=== PATIENT | male | born 1985 | race Caucasian/White ===

== ENCOUNTER 2017-12-14 09:20 | Observation (INO) ==
[2017-12-14 09:29] VITALS: BMI 33.6
--- NOTE | 2017-12-14 10:14 | DR.DIARMA ---
HPI Time seen Time Seen by Provider: 12/14/17 10:06 PCP Primary Care Physician: CHRISTOFER LAUREANO Complaint Chief Complaint Doctor Comments: I agree with statement as written Chief Complaint:: PT. STATES HE HAS IBS AND HAS DIARRHEA SINCE LAST WEEK. PT. SAW PCP LAST WEEK. DIARRHEA WORSENED ON THURSDAY. PT. ALSO C/O ABDOMINAL PAIN. PT. STATES HE LOST 6 LBS YESTERDAY AND WORRIES HE IS BECOMING DEHYDRATED. Source History Provided: Patient Mode of Arrival Mode of Arrival: Ambulatory Timing Onset of Chief Complaint: 12/11/17 PMH PMH Past Medical History: Yes Past Medical History Comment: IBS Past Surgical History: No Surgical History: No History Family History History of Family Medical Conditions: Yes Family Medical History: Diabetes Mellitus, Cancer, Coronary Artery Disease and Hypertension Social History Does patient currently use any type of tobacco product: Yes Have you used tobacco products in the last 12 months: Yes Type of Tobacco Use: DIPS Does any household member use tobacco: No Alcohol Use: None Do you use any recreational Drugs:: No Lives With: Spouse Lives Where: Home infectious screening In the last 2 months have you had wt loss of >10#?: NO Have you had fever, night sweats or hemotysis?: No Have you traveled outside the country in the last 6 months?: No Isolation: Standard PE Vital Signs Vitals: Temperature 98.6 F Pulse Rate [Right Brachial] 76 Pulse Rate 90 Respiratory Rate 20 Blood Pressure [Right Arm] 130/60 Blood Pressure 133/82 O2 Sat by Pulse Oximetry 94 General Limitations: No Limitations; negative Language Barrier and Altered Mental Status General Appearance: Alert and In No Apparent Distress Head Head Exam: Normal Inspection, Atraumatic and Normocephalic Eyes Eye exam: PERRL and EOMI; negative Scleral Icterus ENT ENT Exam: Normal Exam, Normal Oropharynx, Normal External Ear Exam, Mucous Membranes Moist and TM's Normal Bilaterally; negative Mucous Membranes Dry Neck Neck Exam: Normal Inspection and Full ROM Chest Chest Inspection: Normal Inspection and Symmetric Chest Wall Rise; negative Tenderness Respiratory Respiratory Exam: Normal Lung Sounds Bilat; negative Accessory Muscle Use, Chest Wall Tenderness, Prolonged Expiratory Phase, Respiratory Distress and Stridor Respiratory Exam: Bilateral: Clear to Auscultation Cardiovascular Cardiovascular Exam: Normal Rhythm; negative Systolic Murmur Abdominal Exam Abdominal Exam: Normal Inspection, Normal Bowel Sounds, Soft and Hyperactive Bowel Sounds; negative Tenderness, Rebound, Rigidity, Hypoactive Bowel Sounds, Organomegaly, Trauma, Incision and Ascites Abdominal Tenderness: negative RUQ, RLQ, LUQ, LLQ, Epigastrium and Suprapubic Rectal Rectal: negative Normal and Deferred Genitourinary Scrotum: Deferred Prostate: Deferred Extremeties Extremities Exam: Normal Inspection Back Back Exam: Normal Inspection and Full ROM Neurologic Neurological Exam: Alert, Oriented X3 and CN II-XII Intact Psychiatric Psychiatric Exam: Normal Affect and Normal Mood; negative Agitated Skin Skin Exam: Warm, Dry, Intact and Normal Color COURSE Consultation Called: 12:30 Consultation Comments: Patient discussed with Dr. Gilliam who agreed to admit for further evaluation and treatment. [facility] Labs Reviewed Laboratory Results Reviewed?: Yes Result Diagrams: 12/14/17 10:19 12/14/17 10: Laboratory: WBC 14.6 X10^3/uL (3.6-10.0) H 12/14/17 10:19 RBC 5.58 X10^6/uL (4.7-6.0) 12/14/17 10:19 Hgb 17.2 g/dL (13.5-18.0) 12/14/17 10:19 Hct 49.8 % (42.0-54.0) 12/14/17 10:19 MCV 89.3 fL (80.0-100.0) 12/14/17 10:19 MCH 30.9 pg (27.0-34.0) 12/14/17 10:19 MCHC 34.6 g/dL (33.0-35.0) 12/14/17 10:19 RDW 13.3 % (11.6-16.5) 12/14/17 10:19 Plt Count 352 X10^3/uL (150.0-450.0) 12/14/17 10:19 MPV 8.1 fL (7.4-11.0) 12/14/17 10:19 Neut % (Auto) 78.8 % (42.0-75.0) H 12/14/17 10:19 Lymph % (Auto) 11.5 % (21.0-51.0) L 12/14/17 10:19 Irion % (Auto) 7.2 % (0.0-13.0) 12/14/17 10:19 Eos % (Auto) 2.3 % (0.9-2.9) 12/14/17 10:19 Baso % (Auto) 0.2 % (0.2-1.0) 12/14/17 10:19 Neut # (Auto) 11.5 x10^3/uL (2.2-4.8) H 12/14/17 10:19 Lymph # (Auto) 1.7 X10^3/uL (1.3-2.9) 12/14/17 10:19 Irion # (Auto) 1.1 x10^3/uL (0.3-0.8) H 12/14/17 10:19 Eos # (Auto) 0.3 x10^3/uL (0.0-0.2) H 12/14/17 10:19 Baso # (Auto) 0.0 X10^3/uL (0.0-0.1) 12/14/17 10:19 Absolute Nucleated RBC 0.0 /100WBC 12/14/17 10:19 Sodium 137 mmol/L (136-145) 12/14/17 10:19 Corrected Sodium TNP 12/14/17 10:19 Potassium 4.0 mmol/L (3.5-5.1) 12/14/17 10:19 Chloride 103 mmol/L (98-107) 12/14/17 10:19 Carbon Dioxide 25.7 mmol/L (21-32) 12/14/17 10:19 BUN 11 mg/dL (7-18) 12/14/17 10:19 Creatinine 1.16 mg/dL (0.70-1.30) 12/14/17 10:19 Est GFR (MDRD) Af Amer > 60 (>60) 12/14/17 10:19 Est GFR (MDRD) Non-Af > 60 (>60) 12/14/17 10:19 Glucose 102 mg/dL (65-99) H 12/14/17 10:19 Calcium 8.9 mg/dL (8.5-10.1) 12/14/17 10:19 Corrected Calcium TNP 12/14/17 10:19 Total Bilirubin 0.40 mg/dL (0.2-1.0) 12/14/17 10:19 AST 19 Units/L (15-37) 12/14/17 10:19 ALT 53 Units/L (12-78) 12/14/17 10:19 Alkaline Phosphatase 103 Units/L (46-116) 12/14/17 10:19 C-Reactive Protein 11.70 mg/L (0-3.0) H 12/14/17 10:19 Total Protein 8.4 g/dL (6.4-8.2) H 12/14/17 10:19 Albumin 4.3 g/dL (3.4-5.0) 12/14/17 10:19 Globulin 4.1 g/dL (2.5-4.5) 12/14/17 10:19 Albumin/Globulin Ratio 1.0 Ratio (1.1-2.1) L 12/14/17 10:19 Stool Description 30g yellow liquid 12/14/17 10:22 Stl Occult Blood (IFOB) Positive (NEGATIVE) A 12/14/17 10:22 Stool for White Cells Positive (NEGATIVE) A 12/14/17 10:22 H. pylori IgG Antibody Negative (NEGATIVE) 12/14/17 10:19 Diagnosis Discharge Problem: Ulcerative colitis ADDITIONAL NOTES Additional Notes Additional Notes: Stool is positive for blood and wbcs
[2017-12-14 10:25] LABS: BASOPHILS % (AUTO) 0.2 % (0.2-1.0); EOSINOPHILS # (AUTO) 0.3 x10^3/uL (0.0-0.2); EOSINOPHILS % (AUTO) 2.3 % (0.9-2.9); HEMATOCRIT 49.8 % (42.0-54.0); HEMOGLOBIN 17.2 g/dL (13.5-18.0); LYMPHOCYTES # (AUTO) 1.7 X10^3/uL (1.3-2.9); LYMPHOCYTES % (AUTO) 11.5 % (21.0-51.0); MEAN CORPUSCULAR HEMOGLOBIN 30.9 pg (27.0-34.0); MEAN CORPUSCULAR HGB CONC 34.6 g/dL (33.0-35.0); MEAN CORPUSCULAR VOLUME 89.3 fL (80.0-100.0); MEAN PLATELET VOLUME 8.1 fL (7.4-11.0); MONOCYTES # (AUTO) 1.1 x10^3/uL (0.3-0.8); MONOCYTES % (AUTO) 7.2 % (0.0-13.0); NEUTROPHILS # (AUTO) 11.5 x10^3/uL (2.2-4.8); NEUTROPHILS % (AUTO) 78.8 % (42.0-75.0); PLATELET COUNT 352 X10^3/uL (150.0-450.0); RED BLOOD COUNT 5.58 X10^6/uL (4.7-6.0); RED CELL DISTRIBUTION WIDTH 13.3 % (11.6-16.5); WHITE BLOOD COUNT 14.6 X10^3/uL (3.6-10.0)
[2017-12-14] MEDS: NS 1000 ML 1,000 ML IV SCH ×2 (10:28→20:34)
[2017-12-14 10:39] LABS: ALANINE AMINOTRANSFERASE 53 Units/L (12-78); ALBUMIN 4.3 g/dL (3.4-5.0); ALKALINE PHOSPHATASE 103 Units/L (46-116); ASPARTATE AMINO TRANSFERASE 19 Units/L (15-37); BLOOD UREA NITROGEN 11 mg/dL (7-18); CALCIUM 8.9 mg/dL (8.5-10.1); CARBON DIOXIDE 25.7 mmol/L (21-32); CHLORIDE 103 mmol/L (98-107); CREATININE 1.16 mg/dL (0.70-1.30); SODIUM 137 mmol/L (136-145); TOTAL PROTEIN 8.4 g/dL (6.4-8.2); eGFR NON BLACK RACES > 60 (>60)
[2017-12-14 10:47] LABS: STOOL FOR WBC POSITIVE (NEGATIVE)
[2017-12-14] MEDS ORDERED: PREDNISONE TAB 20 MG PO ONE (13:06)
[2017-12-14] MEDS ORDERED: MORPHINE SULFATE INJ 4 MG IVP PRN (13:06)
[2017-12-14] MEDS: AZULFIDINE PO SCH ×2 (13:33→22:27)
[2017-12-14] MEDS: CIPRO IV 400 MG PREMIX* 400 MG/200 ML IV.SOLN. IV SCH ×2 (13:34→20:35)
[2017-12-14] MEDS ORDERED: FLAGYL TAB 250 MG PO SCH (14:00)
[2017-12-14] MEDS: FLAGYL IV PREMIX 500 MG BAG 500 MG/100 ML BAG IV SCH ×2 (14:36→20:35)
[2017-12-14] MEDS ORDERED: CIPRO TAB 500 MG PO SCH (21:00)
[2017-12-15] MEDS: FLAGYL IV PREMIX 500 MG BAG 500 MG/100 ML BAG IV SCH ×4 (02:39→20:30)
[2017-12-15] MEDS: NS 1000 ML 1,000 ML IV SCH ×3 (05:11→20:30)
[2017-12-15 05:16] LABS: BASOPHILS % (AUTO) 0.2 % (0.2-1.0); EOSINOPHILS # (AUTO) 0.2 x10^3/uL (0.0-0.2); HEMATOCRIT 45.2 % (42.0-54.0); LYMPHOCYTES # (AUTO) 1.8 X10^3/uL (1.3-2.9); LYMPHOCYTES % (AUTO) 10.7 % (21.0-51.0); MEAN CORPUSCULAR HEMOGLOBIN 31.3 pg (27.0-34.0); MEAN CORPUSCULAR HGB CONC 35.4 g/dL (33.0-35.0); MEAN CORPUSCULAR VOLUME 88.4 fL (80.0-100.0); MEAN PLATELET VOLUME 8.3 fL (7.4-11.0); MONOCYTES # (AUTO) 1.2 x10^3/uL (0.3-0.8); MONOCYTES % (AUTO) 7.5 % (0.0-13.0); NEUTROPHILS # (AUTO) 13.3 x10^3/uL (2.2-4.8); NEUTROPHILS % (AUTO) 80.6 % (42.0-75.0); PLATELET COUNT 343 X10^3/uL (150.0-450.0); RED BLOOD COUNT 5.11 X10^6/uL (4.7-6.0); RED CELL DISTRIBUTION WIDTH 13.3 % (11.6-16.5); WHITE BLOOD COUNT 16.6 X10^3/uL (3.6-10.0)
[2017-12-15 05:32] LABS: ALANINE AMINOTRANSFERASE 43 Units/L (12-78); ALBUMIN 3.9 g/dL (3.4-5.0); ALKALINE PHOSPHATASE 89 Units/L (46-116); ASPARTATE AMINO TRANSFERASE 12 Units/L (15-37); BLOOD UREA NITROGEN 8 mg/dL (7-18); CALCIUM 8.7 mg/dL (8.5-10.1); CARBON DIOXIDE 25.8 mmol/L (21-32); CHLORIDE 104 mmol/L (98-107); SODIUM 139 mmol/L (136-145); TOTAL PROTEIN 7.5 g/dL (6.4-8.2); eGFR NON BLACK RACES > 60 (>60)
[2017-12-15] MEDS: AZULFIDINE PO SCH ×3 (05:45→21:20)
[2017-12-15] MEDS: CIPRO IV 400 MG PREMIX* 400 MG/200 ML IV.SOLN. IV SCH ×2 (08:19→20:30)
[2017-12-15] MEDS: PREDNISONE TAB 20 MG PO SCH (10:46)
--- NOTE | 2017-12-15 11:43 | RAD ---
HISTORY: Epigastric pain Study: Frontal view of the chest, flat and upright views of the abdomen Comparison: None. Findings: Cardiomediastinal silhouette is normal in size. No focal consolidations, pleural effusions or pneumot horax. Osseous structures are without acute abnormality. Flat and upright views of the abdomen demonstrates a normal bowel gas pattern. No free air. No abnor mal calcifications or abnormal soft tissue shadows. No acute bony abnormalities. IMPRESSION: 1. No acute cardiopulmonary disease. 2. No evidence for acute abdominal pathology. Reported By:
[2017-12-16] MEDS: FLAGYL IV PREMIX 500 MG BAG 500 MG/100 ML BAG IV SCH ×2 (02:34→08:47)
[2017-12-16] MEDS: NS 1000 ML 1,000 ML IV SCH (05:18)
[2017-12-16] MEDS: AZULFIDINE PO SCH (05:18)
[2017-12-16 05:23] LABS: BASOPHILS % (AUTO) 0.3 % (0.2-1.0); EOSINOPHILS # (AUTO) 0.2 x10^3/uL (0.0-0.2); EOSINOPHILS % (AUTO) 1.6 % (0.9-2.9); HEMATOCRIT 40.5 % (42.0-54.0); HEMOGLOBIN 14.1 g/dL (13.5-18.0); LYMPHOCYTES # (AUTO) 2.3 X10^3/uL (1.3-2.9); LYMPHOCYTES % (AUTO) 16.8 % (21.0-51.0); MEAN CORPUSCULAR HEMOGLOBIN 30.7 pg (27.0-34.0); MEAN CORPUSCULAR HGB CONC 34.9 g/dL (33.0-35.0); MEAN CORPUSCULAR VOLUME 87.9 fL (80.0-100.0); MEAN PLATELET VOLUME 8.2 fL (7.4-11.0); MONOCYTES # (AUTO) 1.2 x10^3/uL (0.3-0.8); MONOCYTES % (AUTO) 8.4 % (0.0-13.0); NEUTROPHILS % (AUTO) 72.9 % (42.0-75.0); PLATELET COUNT 288 X10^3/uL (150.0-450.0); RED BLOOD COUNT 4.61 X10^6/uL (4.7-6.0); RED CELL DISTRIBUTION WIDTH 13.1 % (11.6-16.5); WHITE BLOOD COUNT 13.7 X10^3/uL (3.6-10.0)
[2017-12-16 05:54] LABS: ALANINE AMINOTRANSFERASE 38 Units/L (12-78); ALBUMIN 3.3 g/dL (3.4-5.0); ALKALINE PHOSPHATASE 95 Units/L (46-116); ASPARTATE AMINO TRANSFERASE 11 Units/L (15-37); BLOOD UREA NITROGEN 13 mg/dL (7-18); CALCIUM 8.3 mg/dL (8.5-10.1); CARBON DIOXIDE 25.9 mmol/L (21-32); CHLORIDE 107 mmol/L (98-107); COR CA(FOR HYPOALB) 8.9 mg/dL (8.5-10.1); CREATININE 0.92 mg/dL (0.70-1.30); SODIUM 141 mmol/L (136-145); TOTAL PROTEIN 6.2 g/dL (6.4-8.2); eGFR NON BLACK RACES > 60 (>60)
[2017-12-16] MEDS ORDERED: MICRO K EXTEN CAP 10 MEQ PO PRN (06:23)
[2017-12-16] MEDS ORDERED: POTASSIUM CHL 40 MEQ/NS 0.45% 500 ML IV PRN (06:23)
[2017-12-16] MEDS ORDERED: KLOR-CON PO PRN (06:23)
[2017-12-16] MEDS ORDERED: POTASSIUM CHLORIDE LIQ 20 MEQ UDC PO PRN (06:23)
[2017-12-16] MEDS ORDERED: K-DUR TAB 20 MEQ PO PRN (06:23)
[2017-12-16] MEDS ORDERED: K-RIDER 10 MEQ/NS 100 ML 10 MEQ/100 ML BAG IV PRN (06:23)
[2017-12-16] MEDS ORDERED: POTASSIUM CHL 60 MEQ/NS 0.45% 500 ML IV PRN (06:23)
[2017-12-16 08:41] VITALS: BP 113/71
[2017-12-16] MEDS: CIPRO IV 400 MG PREMIX* 400 MG/200 ML IV.SOLN. IV SCH (08:47)
[2017-12-16] MEDS: PREDNISONE TAB 20 MG PO SCH (08:47)
== END 2017-12-16 11:20 | disposition home or self-care (01) ==
LOC: ER 09:25 → MED/SURG 09:25
PROVIDERS: ADMIT Obstetrics & Gynecology Obstetrics; ATTEND Obstetrics & Gynecology Obstetrics
DX: K58.0 Irritable bowel syndrome with diarrhea; E86.0 Dehydration
CPT/HCPCS: 36415; 74022; 80053; 82270; 83630; 83735; 85025; 86140; 86677; 87045; 87427; 87449; 87899; 96365; 96367; 96374; 99283; 99284; A4222; S0030; G0378; J0744; J7030; J7512